=== PATIENT | male | born 1980 | race Caucasian/White ===

== ENCOUNTER 2017-07-03 16:28 | Emergency (ER) | payer SELFPAY ==
[~2017-07-03] VITALS: Ht 185.4 cm; Wt 122.6 kg
[2017-07-03 16:35] VITALS: Ht 185.4 cm; Wt 122.6 kg
[2017-07-03] MEDS ORDERED: SOD CHLORIDE 0.9% 2,000 ML IV STA (16:57)
[2017-07-03] MEDS ORDERED: LACTATED RINGER'S 1,000 ML IV STA (16:57)
[2017-07-03 17:35] LABS: ADD UMIC YES; UR ASCORBIC ACID NEGATIVE (NEGATIVE); UR BILIRUBIN (Dip) NEGATIVE (NEGATIVE); UR BLOOD (Dip) 1+ mg/dL (NEGATIVE); UR CLARITY CLEAR (CLEAR); UR COLOR COLORLESS (YELLOW); UR GLUCOSE (Dip) 3+ mg/dL (NEGATIVE); UR KETONES (Dip) 1+ mg/dL (NEGATIVE); UR LEUKOCYTE ESTERASE (Dip) NEGATIVE Leu/ul (NEGATIVE); UR NITRITE (Dip) NEGATIVE (NEGATIVE); UR RBC 1 /HPF (0-5); UR TOTAL PROTEIN (Dip) 2+ mg/dl (NEGATIVE); UR UROBILINOGEN (Dip) NEGATIVE (NEGATIVE)
[2017-07-03 18:34] LABS: CALCIUM 10.3 mg/dl (8.4-10.2); CREATININE 0.84 mg/dl (0.61-1.24); POTASSIUM 4.6 mmol/L (3.5-5.1)
[2017-07-03] MEDS ORDERED: INSULIN LISPRO 100 UNIT/ML VIAL SC STA (18:49)
[2017-07-03] MEDS ORDERED: ACETAMINOPHEN 325 MG TAB PO ONE (19:00)
[2017-07-03] MEDS ORDERED: METF500T4 PO (19:40)
[2017-07-03 19:41] LABS: PLATELET COUNT 186 10^3/UL (140-440); RED BLOOD COUNT 5.66 10^6/ul (4.70-6.10); WHITE BLOOD COUNT 8.6 10^3/ul (4.8-10.8)
[2017-07-03 19:42] LABS: HEMATOCRIT 46.1 % (42.0-52.0); MEAN CORPUSCULAR VOLUME 81.5 fl (82.0-101.0)
[2017-07-03 19:43] LABS: MEAN CORPUSCULAR HEMOGLOBIN 30.9 pg (29.0-33.0); RED CELL DISTRIBUTION WIDTH 11.1 % (11.5-14.5)
[2017-07-03 19:44] LABS: MEAN PLATELET VOLUME 13.8 fl (7.4-10.4)
--- NOTE | 2017-07-03 19:51 | ERD ---
ER Documentation Chief Complaint Chief Complaint LOSS WT, POLYDYPSIA, POLYURIA X2 WKS, SEND BY CLINIC BECK STILL NEWLY DIABETIC HPI Patient is a 36-year-old male with hypertension who presents saying "I think I have diabetes". He has headache. He feels thirsty and he has been urinating frequently. It started 15 days ago. He was seen by the [facility]s clinic today and was found to have high blood sugar so he was sent to the ER. ROS All systems reviewed and are negative except as per history of present illness. Medications Home Meds Active Scripts Metformin* (Glucophage*) 500 Mg Tab, 500 MG PO BID, #60 TAB Prov:FRANCIE CENTENO MD 07/03/17 Allergies Allergies: Coded Allergies: No Known Allergy (Unverified , 07/03/17) PMhx/Soc History of Surgery: No Anesthesia Reaction: No Hx Neurological Disorder: No Hx Respiratory Disorders: No Hx Cardiac Disorders: Yes (HTN) Hx Psychiatric Problems: No Hx Miscellaneous Medical Probl: Yes (DM) Hx Alcohol Use: No Hx Substance Use: No Hx Tobacco Use: No Smoking Status: Never smoker FmHx Family History: diabetes Physical Exam Vitals Vital Signs Date Time Temp Pulse Resp B/P Pulse Ox O2 Delivery O2 Flow Rate FiO2 07/03/17 16:35 100.2 111 18 165/102 96 Physical Exam Const: No acute distress Head: Atraumatic Eyes: Normal Conjunctiva ENT: Normal External Ears, Nose and Mouth. Neck: Full range of motion..~ No meningismus. Resp: Clear to auscultation bilaterally Cardio: Regular rate and rhythm, no murmurs Abd: Soft, non tender, non distended. Normal bowel sounds Skin: No petechiae or rashes Back: No midline or flank tenderness Ext: No cyanosis, or edema Neur: Awake and alert Psych: Normal Mood and Affect Result Diagram: 07/03/17 1720 07/03/17 1720 Results 24 hrs Laboratory Tests Test 07/03/17 17:20 07/03/17 17:24 07/03/17 18:22 07/03/17 19:33 White Blood Count 8.610^3/ul Red Blood Count 5.6610^6/ul Hemoglobin 17.5g/dl Hematocrit 46.1% Mean Corpuscular Volume 81.5fl Mean Corpuscular Hemoglobin 30.9pg Mean Corpuscular Hemoglobin Concent 38.0g/dl Red Cell Distribution Width 11.1% Platelet Count 33949^3/UL Mean Platelet Volume 13.8fl Urine Color COLORLESS Urine Clarity CLEAR Urine pH 6.0 Urine Specific Hustler 1.030 Urine Ketones 1+mg/dL Urine Nitrite NEGATIVEmg/dL Urine Bilirubin NEGATIVEmg/dL Urine Urobilinogen NEGATIVEmg/dL Urine Leukocyte Esterase NEGATIVELeu/ul Urine Microscopic RBC 1/HPF Urine Microscopic WBC 1/HPF Urine Hemoglobin 1+mg/dL Urine Glucose 3+mg/dL Urine Total Protein 2+mg/dl Sodium Level 134mmol/L Potassium Level 4.6mmol/L Chloride Level 95mmol/L Carbon Dioxide Level 20mmol/L Anion Gap 24 Blood Urea Nitrogen 15mg/dl Creatinine 0.84mg/dl Glucose Level 630mg/dl Lactic Acid Level 1.5mmol/L Calcium Level 10.3mg/dl Bedside Glucose 583mg/dL 424mg/dL 358mg/dL Current Medications Medications (Trade) Dose Ordered Sig/Rich Route PRN Reason Start Time Stop Time Status Last Admin Dose Admin Sodium Chloride 2,000 ml @ 1,000 mls/hr Q2H STAT IV 07/03/17 16:57 07/03/17 18:56 DC 07/03/17 17:13 Lactated Ringer's (Lr) 1,000 ml @ 1,000 mls/hr Q1H STAT IV 07/03/17 16:57 07/03/17 17:56 DC 07/03/17 18:49 Acetaminophen (Tylenol Tab) 650 mg ONCE ONCE PO 07/03/17 19:00 07/03/17 19:01 DC 07/03/17 18:47 Insulin Human Lispro (Humalog) 10 unit ONCE STAT SC 07/03/17 18:49 07/03/17 18:50 DC 07/03/17 19:07 Procedures/MDM Patient is a 36-year-old male with hypertension who presents with what appears to be new onset diabetes. He was found to have hyperglycemia. His bicarbonate is 20 and his urinalysis shows 1+ ketones and at this point I do not think this is acute diabetic ketoacidosis. He is otherwise well-appearing. He was given 3 L of fluids for fluid resuscitation as well as 10 units of subcutaneous Humalog. I believe outpatient management is appropriate but I will start him on metformin 500 mg twice a day. Despite this he would need to follow-up closely with his primary doctor within 24-48 hours at the [facility]. He can return for any worsening symptoms. His sugar improved significantly while in the emergency department. Departure Diagnosis: Primary Impression: Hyperglycemia Condition: Fair Patient Instructions: Hyperglycemia (High Blood Sugar) Additional Instructions: Llame al doctor MAANA y jasmina devin OBEY PARA DENTRO DE 1-2 RAMOS.Dgale a la secretaria que nosotros le instruimos hacer esta obey.Avise o llame si lange condicin se empeora antes de la obey. Regresa aqui si peor o no mejor. FRANCIE CENTENO MD Jul 03, 2017 19:51
[2017-07-03 20:05] VITALS: BP 135/79; PULSE 88; RESP 18; TEMP 98.2
[2017-07-03 20:06] LABS: HEMOGLOBIN 17.5 g/dl (14.0-18.0)
[2017-07-03 20:08] LABS: EOSINOPHILS % (M) 2 % (0-7); MONOCYTES % (M) 5 % (0-11); PLATELET ESTIMATE NORMAL; REACTIVE LYMPHOCYTES% (M) 1 % (0-0)
[2017-07-03 20:38] LABS: CALCIUM 9.4 mg/dl (8.4-10.2); CREATININE 0.78 mg/dl (0.61-1.24); POTASSIUM 4.3 mmol/L (3.5-5.1)
== END 2017-07-03 20:07 | disposition home or self-care (01) ==
LOC: E/R 16:28
DX: E11.65 Type 2 diabetes mellitus with hyperglycemia (principal); I10 Essential (primary) hypertension; Z79.84 Long term (current) use of oral hypoglycemic drugs
CPT/HCPCS: 36415; 80048; 81001; 82962; 83605; 85025; 96372; 99284; J1815; J7030; J7120

== ENCOUNTER 2019-01-29 12:01 | Emergency (ER) | payer MEDICAID ==
[~2019-01-29] VITALS: Ht 185.4 cm; Wt 133.2 kg
[~2019-01-29 12:01] MED LIST: FAMO40TA5 PO; METF-849 PO; PRED20TA PO
[2019-01-29 12:14] VITALS: Ht 185.4 cm; Wt 133.2 kg
--- NOTE | 2019-01-29 12:47 | ERD ---
ER Documentation Chief Complaint Chief Complaint allergic reaction to medication HPI 38-year-old male who had an allergic reaction to lisinopril which eats first took this morning. He then started having swelling of his tongue and difficulty swallowing. He went to his primary care doctor who gave him Benadryl and epinephrine and now he states he is feeling much better. He has no difficulty breathing at this time and states the swelling of his tongue has gone down. He has no chest pain or palpitations. Plans to discontinue lisinopril. ROS All systems reviewed and are negative except as per history of present illness. Medications Home Meds Active Scripts Famotidine* (Famotidine*) 40 Mg Tablet, 40 MG PO BID, #20 TAB Prov:REX MAO PA-C 01/29/19 Prednisone* (Prednisone*) 20 Mg Tab, 60 MG PO DAILY for 4 Days, TAB Prov:REX MAO PA-C 01/29/19 Metformin* (Glucophage*) 500 Mg Tab, 500 MG PO BID, #60 TAB Prov:FRANCIE CENTENO MD 07/03/17 Allergies Allergies: Coded Allergies: No Known Allergy (Unverified , 07/03/17) PMhx/Soc History of Surgery: No Anesthesia Reaction: No Hx Neurological Disorder: No Hx Respiratory Disorders: No Hx Cardiac Disorders: Yes (HTN) Hx Psychiatric Problems: No Hx Miscellaneous Medical Probl: Yes (DM) Hx Alcohol Use: No Hx Substance Use: No Hx Tobacco Use: No FmHx Family History: diabetes Physical Exam Vitals Vital Signs Date Temp Pulse Resp B/P (MAP) Pulse Ox O2 O2 Flow FiO2 Time Delivery Rate 01/29/19 99.5 85 24 146/60 97 12:14 (88) Physical Exam Const: No acute distress Head: Atraumatic Eyes: Normal Conjunctiva ENT: Normal External Ears, Nose. No significant lip or tongue swelling, oropharynx clear, speaks in full sentences Neck: Full range of motion. No meningismus. Resp: Clear to auscultation bilaterally Cardio: Regular rate and rhythm, no murmurs Procedures/MDM Patient has resolving allergic reaction secondary to taking lisinopril. He states his symptoms are much improved from earlier today when he went to his primary care doctor. He already got epinephrine and Benadryl with improvement. He is diabetic but his blood sugar is well controlled and his blood sugar today in primary care office was 136 and that was without taking his diabetic medications today. Therefore I do feel comfortable placing him on a short course of prednisone. I did explain to him that this could elevate his blood sugar and he should monitor more closely his sugar at home and return for any new or worsening symptoms or significant elevation of blood sugar. Patient counseled regarding my diagnostic impression and care plan. Prior to discharge all questions answered. Pt agrees with treatment plan and understands strict return precautions. Pt is instructed to follow up with primary care provider within 24-48 hours. Precautionary instructions provided including instructions to return to the ER if not improving or for any worsening or changing symptoms or concerns. Departure Diagnosis: Primary Impression: Allergic reaction Condition: Stable Patient Instructions: Allergic Reaction, Drug Additional Instructions: Llame al doctor MAANA y jasmina devin OBEY PARA DENTRO DE 1-2 RAMOS.Dgale a la secretaria que nosotros le instruimos hacer esta obey.Avise o llame si lange condicin se empeora antes de la obey. Regresa aqui si peor o no mejor. REX MAO PA-C Jan 29, 2019 12:47
[2019-01-29 12:57] VITALS: BP 153/92; PULSE 83; RESP 18
== END 2019-01-29 12:59 | disposition home or self-care (01) ==
LOC: FTE 12:01
DX: R13.10 Dysphagia, unspecified (principal); T46.4X5A Adverse effect of angiotensin-converting-enzyme inhibitors, initial encounter; I10 Essential (primary) hypertension; E11.9 Type 2 diabetes mellitus without complications
CPT/HCPCS: 99283